=== PATIENT | female | born 1965 | race Caucasian/White ===

== ENCOUNTER → 2016-09-26 | Outpatient (CLI) | payer OTHER ==
--- NOTE | 2016-09-26 16:10 | EKG ---
[address] [address] Measurements Intervals [place] Rate: 98 P: 85 NM: 123 QRS: 81 QRSD: 94 T: 85 QT: 334 QTc: 390 Interpretive Statements SINUS RHYTHM POSSIBLE RIGHT ATRIAL ENLARGEMENT RIGHT VENTRICULAR CONDUCTION DELAY BORDER LINE VOLTAGE FOR LVH Compared to ECG 01/13/2016 16:02:34 No significant changes Electronically Signed On 09-26-16 17:31:21 MST by Kasi Juan [email or web address]
[2016-09-26 16:59] LABS: BASOPHILS # (AUTO) 0.04 10*3/UL; BASOPHILS % (AUTO) 0.7 % (0-1); EOSINOPHILS % (AUTO) 0.7 % (0-8); HEMATOCRIT 41.9 % (37.0-47.0); HEMOGLOBIN 14.7 g/dL (12.0-16.0); IMM GRAN % (AUTO) 0 % (0-5); IMM GRAN# (AUTO) 0 10*3/UL; LYMPHOCYTES # (AUTO) 1.87 10*3/uL; LYMPHOCYTES % (AUTO) 31.8 % (10-50); MEAN CORPUSCULAR HEMOGLOBIN 34.1 PG (27-31); MEAN CORPUSCULAR HGB CONC 35.1 g/dL (33-37); MEAN PLATELET VOLUME 9.1 FL (7.4-12.2); MONOCYTES # (AUTO) 0.84 10*3/UL (0.3-0.8); MONOCYTES % (AUTO) 14.3 % (5-15); NEUTROPHILS # (AUTO) 3.09 10*3/UL; NEUTROPHILS % (AUTO) 52.5 % (50-80); RED BLOOD COUNT 4.31 10^6/uL (4.20-5.40); WHITE BLOOD COUNT 5.88 10^3/uL (4.8-10.8)
[2016-09-26 17:02] LABS: BILIRUBIN,URINE NEGATIVE (NEG); CLARITY,URINE CLEAR (CLEAR); GLUCOSE, URINE (UA) NEGATIVE (NEG); LEUKOCYTE ESTERASE ,URINE NEGATIVE (NEG); NITRATE,URINE NEGATIVE (NEG); OCCULT BLOOD,URINE NEGATIVE (NEG); PROTEIN,URINE NEGATIVE (NEG); UROBILINOGEN,URINE 0.2 mg/dL (0.2)
[2016-09-26 17:05] LABS: PLATELET MORPHOLOGY COMMENT NORMAL MORPHOLOGY (NORM)
[2016-09-26 17:06] LABS: URINE SAMPLE TYPE CLEAN CATCH URINE
[2016-09-26 17:10] LABS: RBC,URINE 0 /hpf; WBC,URINE 0
[2016-09-26 17:35] LABS: ASPARTATE AMINO TRANSFERASE 26 IU/L (8-39); BILIRUBIN,TOTAL 0.6 mg/dL (0.3-1.2); BLOOD UREA NITROGEN 9 mg/dL (7-22); CALCIUM 9.5 mg/dL (8.7-10.7); CHLORIDE 94 meq/L (98-112); CREATININE 0.5 mg/dL (0.50-1.20); EST GLOMERULAR FILTRATION > 60 (>60 ml/min/1.73m(2)); GLUCOSE 66 mg/dL (78-110); POTASSIUM 4.1 meq/L (3.8-5.2); SODIUM 132 meq/L (135-145); TOTAL PROTEIN 7.1 g/dL (6.1-8.0)
[2016-09-26 20:37] LABS: PROTHROMBIN TIME 12.3 secs (9.7-11.4)
--- NOTE | 2016-09-26 21:34 | DI ---
XR CXR 2VW PA/LAT,09/26/2016 3:53 PM: Clinical History: Lumbar disc disorder. Previous Exam: Plain film performed April 05, [address] chest performed April 15, 2014 and June 26, 2014 Findings: PA and lateral views of the chest are obtained, and demonstrate enlarging masses within the right [place] g when compared with the prior PA and lateral view of the chest. There are now 2 spiculated masses id entified and there is some retraction of the lung. Impression: Enlarging right lung nodules most consistent with malignancy. Consider tissue sampling for further ev aluation.
== END ==
LOC: RAD 16:16
PROVIDERS: ATTEND Internal Medicine
DX: Z01.812 Encounter for preprocedural laboratory examination (principal); Z01.810 Encounter for preprocedural cardiovascular examination; Z01.818 Encounter for other preprocedural examination; M51.86 Other intervertebral disc disorders, lumbar region; R91.1 Solitary pulmonary nodule; I45.89 Other specified conduction disorders
CPT/HCPCS: 36415; 71020; 80053; 81001; 85025; 85610; 85730; 93005; 93010

== ENCOUNTER 2016-10-19 20:42 | Emergency (ER) | payer OTHER ==
[2016-10-19] MEDS ORDERED: Sodium Chloride 0.9% 1,000 ML PRIMARY IV ONE ×2 (21:05→22:30)
[2016-10-19] MEDS ORDERED: NORMAL SALINE 10 ML SYRINGE FLUSH IVP PRN (21:05)
[2016-10-19 21:14] LABS: BASOPHILS # (AUTO) 0.04 10*3/UL; BASOPHILS % (AUTO) 0.5 % (0-1); EOSINOPHILS % (AUTO) 1.1 % (0-8); HEMATOCRIT 40.8 % (37.0-47.0); HEMOGLOBIN 14.7 g/dL (12.0-16.0); IMM GRAN % (AUTO) 0.1 % (0-5); IMM GRAN# (AUTO) 0.01 10*3/UL; LYMPHOCYTES # (AUTO) 1.87 10*3/uL; LYMPHOCYTES % (AUTO) 25.5 % (10-50); MEAN CORPUSCULAR HEMOGLOBIN 34.7 PG (27-31); MEAN PLATELET VOLUME 8.6 FL (7.4-12.2); MONOCYTES # (AUTO) 0.92 10*3/UL (0.3-0.8); MONOCYTES % (AUTO) 12.5 % (5-15); NEUTROPHILS # (AUTO) 4.42 10*3/UL; NEUTROPHILS % (AUTO) 60.3 % (50-80); RDW COEFFICIENT OF VARIATION 12.6 % (11.5-14.5); RED BLOOD COUNT 4.24 10^6/uL (4.20-5.40); WHITE BLOOD COUNT 7.34 10^3/uL (4.8-10.8)
[2016-10-19 21:17] LABS: PLATELET MORPHOLOGY COMMENT NORMAL MORPHOLOGY (NORM)
[2016-10-19 21:22] VITALS: RESP 16; TEMP 98.9
[2016-10-19 21:24] LABS: AMYLASE 49 U/L (30-110); ASPARTATE AMINO TRANSFERASE 27 IU/L (8-39); BILIRUBIN,TOTAL 0.4 mg/dL (0.3-1.2); BLOOD UREA NITROGEN 12 mg/dL (7-22); CALCIUM 9.5 mg/dL (8.7-10.7); CHLORIDE 98 meq/L (98-112); CREATININE 0.6 mg/dL (0.50-1.20); EST GLOMERULAR FILTRATION > 60 (>60 ml/min/1.73m(2)); GLUCOSE 91 mg/dL (78-110); POTASSIUM 3.9 meq/L (3.8-5.2); SODIUM 135 meq/L (135-145); TOTAL PROTEIN 7.3 g/dL (6.1-8.0)
--- NOTE | 2016-10-19 22:22 | DI ---
HISTORY: Abdominal pain. COMPARISON: None available. TECHNIQUE: Multiple helically acquired CT images were obtained through the abdomen and pelvis follow ing administration of intravenous contrast. FINDINGS: Examination demonstrates clear lungs. The liver, gallbladder, pancreas, spleen, adrenals and kidneys are unremarkable. There is prominence of the right proximal ureter with a very small 3 mm right mid ureteral stone at the level of the rig ht common iliac artery. There is no free air nor free fluid. Urinary bladder is unremarkable. The left kidney is normal. A few peripheral vascular calcifications are seen. Skeletal structures are unremarkable. IMPRESSION: 1. Possible 2.5 mm stone within the right mid ureter at the level of the right common iliac artery.
[2016-10-19] MEDS ORDERED: TAMSULOSIN 0.4 MG CAPSULE PO ONE (22:30)
[2016-10-19] MEDS ORDERED: KETOROLAC 30 MG/1 ML VIAL IM ONE (22:30)
[2016-10-19 22:40] LABS: BILIRUBIN,URINE NEGATIVE (NEG); CLARITY,URINE CLEAR (CLEAR); GLUCOSE, URINE (UA) NEGATIVE (NEG); LEUKOCYTE ESTERASE ,URINE NEGATIVE (NEG); NITRATE,URINE NEGATIVE (NEG); OCCULT BLOOD,URINE NEGATIVE (NEG); PROTEIN,URINE NEGATIVE (NEG); UROBILINOGEN,URINE 0.2 mg/dL (0.2)
[2016-10-19 22:45] LABS: URINE SAMPLE TYPE CLEAN CATCH URINE
[2016-10-19 22:46] LABS: RBC,URINE 0-1 /hpf; WBC,URINE 0
--- NOTE | 2016-10-20 03:26 | PDOC ---
Abdomen/Flank HPI - General Chief Complaint: Abdomen Pain Stated Complaint: Abdominal bloating/distention Date Seen by Provider: 10/19/16 Time Seen by Provider: 20:50 Source: POSITIVE: Patient Exam Limitations: POSITIVE: No limitations Nurse's Notes Reviewed & Considered: Yes - History of Present Illness Initial Comments: Patient is a 51-year-old female. She presents to the emergency room complaining of some "abdominal distention" today. She also complains of some pain in the right flank radiating into the right lower part of her abdomen. She states she had back surgery 9 days ago. She's never had any abdominal surgery. No fevers or chills. No nausea, vomiting, dysuria or hematuria. She states she's had a couple of loose bowel movements today; she states that prior to today she's not had any bowel movements for several days. No known fevers. She smokes a pack of cigarettes per day. She has been taking half a Percocet tablet every 8 hours as necessary for her postoperative back discomfort. Body Location Affected: REPORTS: Abdomen Timing: REPORTS: Gradual, Intermittent Duration: <24 hours Severity: Moderate Quality: REPORTS: "Pain" Abdominal Pain Onset Location: REPORTS: RLQ, Periumbilical Abdominal Pain Radiation: REPORTS: No radiation Context: REPORTS: None Modifying Factors: improves with: Other (Loose bowel movements today) Associated Symptoms: REPORTS: Denies symptoms Similar Symptoms Previously: No Recent Care Received: REPORTS: Denies Any Prior Injuries Related to Current Complaint?: No - Patient Home Medications Home Medications: Home Medications Ibuprofen 1 cap PO Q6H #180 cap 07/06/15 Tamsulosin HCl 0.4 mg PO DAILY #12 cap 10/19/16 - Patient Allergies Allergies/Adverse Reactions: Allergies Allergy/AdvReac Type Severity Reaction Status Date / Time adhesive Allergy Severe RASH Verified 10/19/16 20:53 Past Medical History - heen HEENT History: Denies History Cardiovascular History: Denies History Respiratory History: Denies History Gastrointestinal History: Denies History Genitourinary History: Denies History Endocrine History: Denies History Musculoskeletal History: Osteoporosis, Back Pain, Other (please comment) Prosthesis or Implant: No Additional Musculoskeletal History: Hx of MLD and Laminectomy (on 10/10/2016). Neurological History: Denies History Blood Disorders: Denies History Psychiatric History: Denies History Additional Psychiatric History: ANXIETY SINCE LOSS OF SISTER TO [place] History of Sexually Transmitted Diseases: No Cancer History: Lung Cancer Treatment / Date(s) of Treatment: RADIATION OCT 2015/ NEXT PET JANUARY 09 In Past Year Been Physically Harmed or Verbally Threatened: No History of MDRO: Unknown History of Other Communicable Diseases: No Tobacco Use: Current Every Day Smoker Alcohol Use: Occasionally Substance Use Type: None Previous Surgical History: Yes Type / Date of Surgery: EXPLORATORY LAP. LEFT THUMB SURGERY Anesthesia Reactions: No Malignant Hyperthermia: No Significant Family History: No pertinent family hx Past Medical History Reviewed: Reviewed - No Changes ROS - Limitations ROS Limitations: No Limitations Constitution: REPORTS: Denies Symptoms Cardiovascular: REPORTS: Denies Cardiac Symptoms Respiratory: REPORTS: Denies Resp Symptoms Neurological: REPORTS: Denies Neuro Symptoms Gastrointestinal: REPORTS: Abdominal Pain, Diarrhea Endocrine: REPORTS: Denies Symptoms Musculoskeletal: REPORTS: Denies MS Symptoms Genitourinary: REPORTS: Denies Symptoms Eyes: REPORTS: Denies Symptoms ENT: REPORTS: Denies Symptoms Skin: REPORTS: Denies Skin Symptoms Lympathic: REPORTS: Denies Lympathic Symptoms Immunologic: POSITIVE: Denies Symptoms Psychiatric: POSITIVE: Denies Psych Symptoms Abdominal/Flank Pain PE - General Appearance General Appearance: POSITIVE: Alert, Cooperative, No Acute Distress, No Evidence of Trauma - HEENT HEENT: POSITIVE: Head Inspection Nml, Eyes Inspection Nml, Ears Inspection Nml, Nose Inspection Nml, Oral/Dental Inspect. Nml, Pharynx Inspect. Nml, PERRL, EOMI - Neck Neck: POSITIVE: Normal Inspection, No Apparent Injury - Respiratory Respiratory: POSITIVE: No Respiratory Distress, Breath Sounds Normal, Chest Non- Tender - Cardiovascular Cardiovascular: POSITIVE: Regular Rate and Rhythm, Heart Sounds Normal, Equal Pulses, Strong Pulses Peripheral Pulses: Radial (R): 2+, Radial (L): 2+ - Abdomen Abdomen: Soft: (All Quadrants), Normal Bowel Sounds: (All Quadrants), Denies Tenderness: (RUQ), No Splenomegaly: (All Quadrants), No Hepatomegaly: (All Quadrants), No Guarding: (All Quadrants), No Rebound: (All Quadrants), No Palpable Pulse: (All Quadrants), No Palpabale Mass: (All Quadrants), No Distention: (RUQ), (LUQ), No Rigidity: (All Quadrants), Tenderness Noted: (RLQ) , (LLQ) Additional Abdominal Details: Abdominal examination shows bowel sounds to be active. There is some mild poorly localized discomfort and distention left and right lower abdomen; patient is quite thin. - Genital / Rectal Rectal: POSITIVE: Non Tender, Normal Rectal Tone, Heme Negative Stool, Other ( Considerable air in the vault. Minimal stool. Liquid stool in the vault which is Hemoccult negative) - Back Back: POSITIVE: Normal Inspection - Skin Skin: POSITIVE: Intact, Normal For Race, Warm, Dry, No Rash - Extremities Extremity: Non-Tender: (All Extremities), Normal ROM: (All Extremities), Normal Inspection: (All Extremities) - Neurological Neurological: POSITIVE: Oriented X3, food preparer Normal As Tested, Motor Normal, Sensation Normal, 5, 6 - Psychological Psychiatric: POSITIVE: Affect Appropriate, Mood Appropriate Images - Complete Complete: 1 - Mild abdominal distention Abdomen Progress - Results Reviewed by me Xrays/CTs/US Reviewed by me: Yes Discussed with Radiologist: Yes Radiology Findings: Probable small ureterolith, 3 mm, right ureter at about the level of the iliac artery with some hydroureter proximal to this Lab Results Reviewed: Yes Lab Results:: Laboratory Results 10/19/16 10/19/16 Range/Units 21:10 22:35 WBC 7.34 (4.8-10.8) 10^3/uL RBC 4.24 (4.20-5.40) 10^6/uL Hgb 14.7 (12.0-16.0) g/dL Hct 40.8 (37.0-47.0) % MCV 96.2 (81-99) FL MCH 34.7 H (27-31) PG MCHC 36.0 (33-37) g/dL RDW Std Deviation 43.0 (39-50) fL RDW Coeff of Delilah 12.6 (11.5-14.5) % Plt Count 273 (140-350) 10*3/uL MPV 8.6 (7.4-12.2) FL Immature Gran % (Auto) 0.1 (0-5) % Neut % (Auto) 60.3 (50-80) % Lymph % (Auto) 25.5 (10-50) % [place] % (Auto) 12.5 (5-15) % Eos % (Auto) 1.1 (0-8) % Baso % (Auto) 0.5 (0-1) % Immature Gran # (Auto) 0.01 10*3/UL Neut # (Auto) 4.42 10*3/UL Lymph # (Auto) 1.87 10*3/uL [place] # (Auto) 0.92 H (0.3-0.8) 10*3/UL Eos # (Auto) 0.08 10*3/UL Baso # (Auto) 0.04 10*3/UL WBC Morphology Comment Normal morphology (NORM) Plt Morphology Comment Normal morphology (NORM) RBC Morph Comment Normal morphology (NORM) Sodium 135 (135-145) meq/L Potassium 3.9 (3.8-5.2) meq/L Chloride 98 (98-112) meq/L Carbon Dioxide 26 (23-33) meq/L Anion Gap 11 (5-20) BUN 12 (7-22) mg/dL Creatinine 0.6 (0.50-1.20) mg/dL Estimated GFR > 60 (>60 ml/min/1.73m(2)) BUN/Creatinine Ratio 20.00 (6-20) Glucose 91 (78-110) mg/dL Calculated Osmolality 279.0 (267-292) mOsm/kg Calcium 9.5 (8.7-10.7) mg/dL Total Bilirubin 0.4 (0.3-1.2) mg/dL AST 27 (8-39) IU/L ALT 33 (9-52) IU/L Alkaline Phosphatase 68 (38-126) IU/L Total Protein 7.3 (6.1-8.0) g/dL Albumin 4.6 (3.5-4.8) g/dL Globulin 2.6 (2.50-4.10) g/dL Albumin/Globulin Ratio 1.70 (1.3-2.0) mg/g Amylase 49 (30-110) U/L Lipase 152 (23-300) IU/L Ur Collection Type Clean catch urine Urine Color Yellow Urine Clarity Clear (CLEAR) Urine pH 7.0 (5.0-8.5) Ur Specific [place] 1.010 (1.005-1.030) Urine Protein Negative (NEG) mg/dl Urine Glucose (UA) Negative (NEG) mg/dL Urine Ketones Negative (NEG) Urine Occult Blood Negative (NEG) Urine Nitrate Negative (NEG) Urine Bilirubin Negative (NEG) Urine Urobilinogen 0.2 (0.2) mg/dL Ur Leukocyte Esterase Negative (NEG) Urine RBC 0-1 (NONE) /hpf Urine WBC 0 (NONE) Ur Squamous Epith Cells None (NONE) Ur Renal Epithelial Cell None (NONE) Urine Crystals None Urine Bacteria None (NONE) Urine Casts None Urine Mucus None (NONE) Urine Trichomonas None (NONE) Urine Yeast None (NONE) - Patient's Progress Pain Medication Addressed: POSITIVE: Yes (Ketorolac, 30 mg IV; patient also given Flomax 0.4 mg orally) School/Work Release Addressed: POSITIVE: Not Applicable Re-examine Time: 23:00 Re-Examine Comment: CT scan also shows considerable liquid stool in the lower large bowel. Diagnoses and instructions given to patient. Patient feels somewhat improved after IV fluids and ketorolac IV. Status: POSITIVE: Improved, Re-Examined - Consult Counseled: POSITIVE: Patient, RE: Lab Results, RE: Radiology Results, RE: DX, RE : Need for F/U Patient Care Time - Estimated PCT Patient Care Time (In Minutes): 45 Vital Signs - Recent Vital Signs Vital Signs: Vital Signs (Last 8 hours) Temp Pulse Resp BP Pulse Ox 10/19/16 20:42 98.9 F 108 H 16 141/91 93 - VS Reviewed Vital Signs Reviewed: Yes Discharge Clinical Impression: Diarrhea, Ureterolithiasis Discharge Disposition: Discharged to Home Condition: Stable Prescriptions / Orders: Tamsulosin HCl 0.4 mg PO DAILY #12 cap Patient Instructions Given at Discharge: Acute Diarrhea (ED), Ureteral Stones ( ED) Additional Instructions: Your CT scan shows that you probably have a small ureterolith (kidney stone) on the right. This stone is small and it will probably pass. Increase fluids. Strain your urine and check for passage of a stone. Tamsulosin, one daily. Percocet every 4-6 hours as necessary for pain. You also have considerable fluid in your bowel and your beginning to have diarrhea; this is probably the source of your abdominal distention. Clear liquid diet for 12 hours. Return anytime if condition worsens. If you have not passed her stone in 7-10 days, please follow-up with urology in [place], because occasionally the stones need to be removed; however, as indicated above, your stone is very small and I believe you will probably pass this stone, although you might have some pain and discomfort while you are doing so. Return any time if you develop fevers or chills, persistent vomiting, or if condition worsens in any way whatsoever. Follow Up With: JOELLE JOAQUIN [Primary Care Provider] - (Instructions and medications as above. Follow-up with your primary care provider, and if necessary, urology. Return here anytime if condition worsens.)
== END 2016-10-19 23:30 | disposition home or self-care (01) ==
LOC: ER 20:42
DX: N20.1 Calculus of ureter (principal); R19.7 Diarrhea, unspecified; R10.31 Right lower quadrant pain; Z72.0 Tobacco use
CPT/HCPCS: 74177; 80053; 81001; 82150; 83690; 85025; 96361; 96374; 99283 ×2; J1885; J7030

== ENCOUNTER 2016-10-22 06:10 | Emergency (ER) | payer OTHER ==
[2016-10-22 06:23] VITALS: RESP 16; TEMP 97.4
[2016-10-22] MEDS ORDERED: Prochlorperazine Edisylate Inj 10mg/2ml vial IVP ONE (06:26)
[2016-10-22] MEDS ORDERED: DEXAMETHASONE PF 10 MG/1 ML VIAL IM ONE (06:26)
[2016-10-22] MEDS ORDERED: diphenhydrAMINE 50 MG/1 ML VIAL IVP ONE (06:26)
[2016-10-22] MEDS ORDERED: NORMAL SALINE 10 ML SYRINGE FLUSH IVP PRN (06:26)
[2016-10-22] MEDS ORDERED: Sodium Chloride 0.9% 1,000 ML PRIMARY IV ONE (06:26)
[2016-10-22 06:37] LABS: BASOPHILS # (AUTO) 0.02 10*3/UL; BASOPHILS % (AUTO) 0.2 % (0-1); EOSINOPHILS % (AUTO) 1.1 % (0-8); HEMATOCRIT 39.6 % (37.0-47.0); HEMOGLOBIN 14.2 g/dL (12.0-16.0); IMM GRAN % (AUTO) 0.2 % (0-5); IMM GRAN# (AUTO) 0.02 10*3/UL; MEAN CORPUSCULAR HEMOGLOBIN 34.4 PG (27-31); MEAN CORPUSCULAR HGB CONC 35.9 g/dL (33-37); MEAN PLATELET VOLUME 8.6 FL (7.4-12.2); MONOCYTES % (AUTO) 7.4 % (5-15); NEUTROPHILS # (AUTO) 5.66 10*3/UL; NEUTROPHILS % (AUTO) 70.1 % (50-80); RDW COEFFICIENT OF VARIATION 12.6 % (11.5-14.5); RED BLOOD COUNT 4.13 10^6/uL (4.20-5.40); WHITE BLOOD COUNT 8.09 10^3/uL (4.8-10.8)
[2016-10-22 06:40] LABS: PLATELET MORPHOLOGY COMMENT NORMAL MORPHOLOGY (NORM)
[2016-10-22 06:51] LABS: ASPARTATE AMINO TRANSFERASE 19 IU/L (8-39); BILIRUBIN,TOTAL 0.5 mg/dL (0.3-1.2); BLOOD UREA NITROGEN 4 mg/dL (7-22); CALCIUM 9.2 mg/dL (8.7-10.7); CHLORIDE 98 meq/L (98-112); CREATININE 0.5 mg/dL (0.50-1.20); EST GLOMERULAR FILTRATION > 60 (>60 ml/min/1.73m(2)); GLUCOSE 97 mg/dL (78-110); POTASSIUM 4.1 meq/L (3.8-5.2); SODIUM 133 meq/L (135-145); TOTAL PROTEIN 7.1 g/dL (6.1-8.0)
[2016-10-22 06:52] LABS: C-REACTIVE PROTEIN < 0.5 mg/dL (0.0-0.9)
--- NOTE | 2016-10-22 07:27 | PDOC ---
Headache HPI - General Chief Complaint: Headache Stated Complaint: headache, abd pain Date Seen by Provider: 10/22/16 Time Seen by Provider: 06:20 Source: POSITIVE: Patient Exam Limitations: POSITIVE: No limitations Nurse's Notes Reviewed & Considered: Yes - History of Present Illness Initial Comments: The patient is a 51-year-old female who presents to the emergency department with complaints of left sided frontal headache. She states that she had onset of headache yesterday. She describes the pain as a sharp occasionally throbbing pain to the left frontal area. She did have one episode of nausea and vomiting yesterday. She does not have prior history of similar headaches in the past. She currently reports her pain is a 9 out of 10 and she did not sleep at all last night secondary to the pain. She did recently undergo a lumbar laminectomy surgery. She also has a history of lung cancer and is status post radiation treatments for this. She is scheduled to undergo PET scanning sometime in the next week or 2 with her oncologist in [place]. She denies any recent trauma or illness otherwise. She was evaluated here in the emergency room several days ago with complaints of abdominal bloating and pain. She was noted to have a kidney stone on her CAT scan and had been started on Flomax. She states that her headache started shortly after taking the Flomax. She denies significant light sensitivity or change in vision. She reports that her vision is blurry chronically and she needs new glasses. She denies numbness or weakness in her arms or legs. - Patient Home Medications Home Medications: Home Medications Ibuprofen 1 cap PO Q6H #180 cap 07/06/15 Tamsulosin HCl 0.4 mg PO DAILY #12 cap 10/19/16 Promethazine HCl [Phenergan] 25 mg PO Q6H PRN #10 tab 10/22/16 oxyCODONE/APAP 5/325 Tab [Percocet 5/325 Tab] 2.5 mg PO PRN 10/22/16 - Patient Allergies Allergies/Adverse Reactions: Allergies Allergy/AdvReac Type Severity Reaction Status Date / Time adhesive Allergy Severe RASH Verified 10/22/16 06:13 Past Medical History - li SCHAFERENT History: Denies History Cardiovascular History: Denies History Respiratory History: Denies History Gastrointestinal History: Denies History Genitourinary History: Denies History Endocrine History: Denies History Musculoskeletal History: Osteoporosis, Back Pain, Other (please comment) Prosthesis or Implant: No Additional Musculoskeletal History: Hx of MLD and Laminectomy (on 10/10/2016). Neurological History: Denies History Blood Disorders: Denies History Psychiatric History: Denies History Additional Psychiatric History: ANXIETY SINCE LOSS OF SISTER TO [place] History of Sexually Transmitted Diseases: No LMP: 1996 Cancer History: Lung Cancer Treatment / Date(s) of Treatment: RADIATION OCT 2015/ NEXT PET JANUARY 09 In Past Year Been Physically Harmed or Verbally Threatened: No History of MDRO: Unknown History of Other Communicable Diseases: No Tobacco Use: Current Every Day Smoker Alcohol Use: Occasionally Substance Use Type: None Previous Surgical History: Yes Type / Date of Surgery: EXPLORATORY LAP. LEFT THUMB SURGERY. Back Anesthesia Reactions: No Malignant Hyperthermia: No Significant Family History: No pertinent family hx Past Medical History Reviewed: Reviewed - No Changes ROS - Limitations ROS Limitations: No Limitations Constitution: REPORTS: Chills. DENIES: Fever Cardiovascular: REPORTS: Denies Cardiac Symptoms Respiratory: REPORTS: Denies Resp Symptoms Neurological: REPORTS: Headache. DENIES: Confusion, Numbness, Fainting, Difficulty Walking, Seizure Activity, Weakness Gastrointestinal: REPORTS: Nausea, Vomitting (1 yesterday), Diarrhea (She has had some loose stools since being seen in the ER 2 days ago). DENIES: Abdominal Pain (No current abdominal pain, she was evaluated in the ER several days ago with abdominal pain and bloating and diagnosed with a kidney stone) Musculoskeletal: REPORTS: Denies MS Symptoms Genitourinary: REPORTS: Denies Symptoms Eyes: REPORTS: Denies Symptoms ENT: REPORTS: Denies Symptoms. DENIES: Congestion, Sore Throat Skin: DENIES: Rash Headache Exam - General Appearance General Appearance: POSITIVE: Alert, Cooperative, No Acute Distress - HEENT Head / Face: POSITIVE: Atraumatic, Normal Inspection, No Facial Swelling Eyes: POSITIVE: Inspection Normal, PERRL, EOM's Intact Ears: POSITIVE: Ears Normal Inspection, TM Normal Inspection Nose: POSITIVE: Inspection Normal Oropharynx: POSITIVE: External Inspection Nml, Pharynx Inspect. Nml, Airway Intact, Voice Normal, Moist Mucous Membranes - Neck Neck: POSITIVE: Normal Inspection, Supple. NEGATIVE: Lymphadenopathy, Stiff Neck - Respiratory / CVS Respiratory / CVS: POSITIVE: No Respiratory Distress, Heart Sounds Normal, Regular Rate/Rhythm, Breath Sounds Normal Peripheral Pulses: Dorsalis-pedis (R): 2+, Dorsalis-pedis (L): 2+ - Abdomen Abdomen: Soft: (All Quadrants), Denies Tenderness: (All Quadrants), No Distention: (All Quadrants) - Extremities Extremity: Normal ROM: (All Extremities), Normal Inspection: (All Extremities) - Neuro / Psych Higher Functions: POSITIVE: Alert, Oriented x3, Normal Speech Cranial Nerves: POSITIVE: Normal As Tested Sensorimotor: POSITIVE: No Motor Deficits, No Sensory Deficits Headache Progress - Results Reviewed by me Xrays/CTs/US Reviewed by me: Yes Discussed with Radiologist: Yes Radiology Findings: CT scan of her head reveals no acute intracranial abnormality per radiologist. Lab Results Reviewed: Yes Lab Results:: Laboratory Results 10/22/16 Range/Units 06:30 WBC 8.09 (4.8-10.8) 10^3/uL RBC 4.13 L (4.20-5.40) 10^6/uL Hgb 14.2 (12.0-16.0) g/dL Hct 39.6 (37.0-47.0) % MCV 95.9 (81-99) FL MCH 34.4 H (27-31) PG MCHC 35.9 (33-37) g/dL RDW Std Deviation 43.2 (39-50) fL RDW Coeff of Delilah 12.6 (11.5-14.5) % Plt Count 268 (140-350) 10*3/uL MPV 8.6 (7.4-12.2) FL Immature Gran % (Auto) 0.2 (0-5) % Neut % (Auto) 70.1 (50-80) % Lymph % (Auto) 21.0 (10-50) % [place] % (Auto) 7.4 (5-15) % Eos % (Auto) 1.1 (0-8) % Baso % (Auto) 0.2 (0-1) % Immature Gran # (Auto) 0.02 10*3/UL Neut # (Auto) 5.66 10*3/UL Lymph # (Auto) 1.70 10*3/uL [place] # (Auto) 0.60 (0.3-0.8) 10*3/UL Eos # (Auto) 0.09 10*3/UL Baso # (Auto) 0.02 10*3/UL WBC Morphology Comment Normal morphology (NORM) Plt Morphology Comment Normal morphology (NORM) RBC Morph Comment Normal morphology (NORM) Sodium 133 L (135-145) meq/L Potassium 4.1 (3.8-5.2) meq/L Chloride 98 (98-112) meq/L Carbon Dioxide 23 (23-33) meq/L Anion Gap 12 (5-20) BUN 4 L (7-22) mg/dL Creatinine 0.5 (0.50-1.20) mg/dL Estimated GFR > 60 (>60 ml/min/1.73m(2)) BUN/Creatinine Ratio 8.00 (6-20) Glucose 97 (78-110) mg/dL Calculated Osmolality 272.0 (267-292) mOsm/kg Calcium 9.2 (8.7-10.7) mg/dL Total Bilirubin 0.5 (0.3-1.2) mg/dL AST 19 (8-39) IU/L ALT 30 (9-52) IU/L Alkaline Phosphatase 55 (38-126) IU/L C-Reactive Protein < 0.5 (0.0-0.9) mg/dL Total Protein 7.1 (6.1-8.0) g/dL Albumin 4.3 (3.5-4.8) g/dL Globulin 2.8 (2.50-4.10) g/dL Albumin/Globulin Ratio 1.50 (1.3-2.0) mg/g - Patient's Progress MDM / ED Course: On arrival the patient reported that her pain level was 9 out of 10. An IV was established and she did receive 1 L bolus of normal saline as well as Compazine 5 mg IV, Benadryl 25 mg IV and Decadron 10 mg IV. Shortly after receiving the Compazine she had onset of itching that started in the area of her buttocks and then extended systemically. She did not exhibit any rash or swelling. It was thought that this might of been some type of mild dystonic reaction that resolved very quickly. Her headache improved from a 9 to a 45 out of 10. Lab work is all essentially unremarkable. CT scan of her head was obtained. This was read as normal per radiologist. By the time CT scan results were available the patient was resting comfortably and stated that her pain was down to about a 3 out of 10. Results of lab work and CT scan were discussed. The exact etiology of her headache is unclear. This could represent a migraine or tension headache. Her pain has responded well to current therapy. She was given Toradol 30 mg IV prior to discharge. She is advised to rest and push fluids. She will continue ibuprofen or oxycodone as needed for pain. In addition she was prescribed Phenergan which can be used in combination with Benadryl if she has recurrent headache. Her headaches did start after initiation of treatment with Flomax. This may be unrelated however she does not appear to need this medication currently and will be discontinued. She is advised to return to the emergency room if she develops worsening headache, vomiting or dehydration, fever, any worsening or change in symptoms. She has a scheduled follow-up with her oncologist later this week for PET scanning. She is also advised follow-up with Dr. Joaquin. - Consult Counseled: POSITIVE: Patient, Family, RE: Lab Results, RE: Radiology Results, RE : DX, RE: Need for F/U Patient Care Time - Estimated PCT Patient Care Time (In Minutes): 35 Vital Signs - Recent Vital Signs Vital Signs: Vital Signs (Last 8 hours) Temp Pulse Resp BP Pulse Ox 10/22/16 06:16 97.4 F 95 16 160/105 95 - VS Reviewed Vital Signs Reviewed: Yes Discharge Clinical Impression: Headache Condition: Stable Prescriptions / Orders: Promethazine HCl [Phenergan] 25 mg PO Q6H PRN #10 tab PRN Reason: Nausea / Vomiting Patient Instructions Given at Discharge: Acute Headache (ED) Additional Instructions: The CAT scan did not reveal any evidence of bleeding, tumor or any other abnormality. Her blood work is all essentially normal as well. The exact cause of the headache is unclear however could be a migraine or tension headache. Rest and push fluids. Continue ibuprofen as needed for pain. Continue oxycodone as needed for pain. You've also been prescribed Phenergan which can be taken in combination with Benadryl for headache as well. It is possible that the Flomax (kidney stone medication) is contributing to headaches and can be discontinued. Return to the emergency room if worsening headache, vomiting or dehydration, fever, any worsening or change in symptoms. Keep your appointment for the PET scanning later this week with subsequent follow-up. Follow-up with primary care in 5-7 days. Follow Up With: JOELLE JOAQUIN [Primary Care Provider] -
--- NOTE | 2016-10-22 07:35 | DI ---
HISTORY: Left frontal headache x2 days. Patient reports changes in vision and sensitivity to light. TECHNIQUE: Contiguous axial images of the brain were obtained and submitted for interpretation. FINDINGS: No acute intracranial hemorrhage. No mass effect or midline shift. The ventricles, sulci, and cisterns are within normal limits for age. The [place]-white matter differentiation is preserved w ith no evidence of acute infarct. No aggressive osseous lesion or depressed skull fracture. Paranasal sinuses and mastoid air cells ar e clear. Vascular structures are intact. Orbits and facial soft tissues are unremarkable. IMPRESSION: 1. No acute intracranial findings.
[2016-10-22] MEDS ORDERED: KETOROLAC 30 MG/1 ML VIAL IVP ONE (07:46)
== END 2016-10-22 08:13 | disposition home or self-care (01) ==
LOC: ER 06:10
DX: R51 Headache (principal); R11.2 Nausea with vomiting, unspecified
CPT/HCPCS: 70450; 80053; 85025; 86140; 96361; 96374; 96375; 99283 ×2; J1200; J1885; J0780; J1100; J7030

== ENCOUNTER → 2017-01-22 | Outpatient (CLI) | payer OTHER ==
--- NOTE | 2017-01-22 11:14 | DI ---
MRI LUMBAR SPINE W/O CN,01/22/2017 7:46 AM: Clinical History: Recurrent low back pain with radiculopathy. Previous Exam: May 19, 2016 Findings: Multiplanar MR images are obtained through the lumbar spine without contrast. Bony alignment is anato brennan. No fractures are seen. The conus is normal at the L1 level. Visualized intra-abdominal structures are unremarkable. There is some stable facet arthropathy which is worst at the L4/5 level, but is also present at L5/S1 . There is no evidence of spondylolysis. Individual intervertebral disc spaces: L1/2: No significant stenosis. L2/3: There is a small broad-based disc bulge and some mild facet and ligamentum flavum hypertrophy w ithout significant stenosis. L3/4: There is some mild disc desiccation and annular fissuring with some facet and ligamentum flavum hypertrophy contributing to mild bilateral neural foraminal narrowing. L4/5: Again noted is disc desiccation and annular fissuring however, there has been some new disc ext rusion involving the right lateral recess combining with facet and ligamentum flavum hypertrophy to c ause some focal narrowing of the exiting right L4 nerve root. There is also moderate left lateral rec ess stenosis. L5/S1: There is a very small annular fissure posteriorly and a small broad-based disc bulge with some facet and ligamentum flavum hypertrophy contributing to mild bilateral lateral recess stenosis. Impression: New right lateral recess disc extrusion causing impingement of the exiting L4 nerve root at the L4/5 level.
== END ==
LOC: MRI 07:41
PROVIDERS: ATTEND Urology
DX: M54.16 Radiculopathy, lumbar region (principal); M51.16 Intervertebral disc disorders with radiculopathy, lumbar region; M47.816 Spondylosis without myelopathy or radiculopathy, lumbar region
CPT/HCPCS: 72148

== ENCOUNTER → 2017-01-30 | Outpatient (CLI) | payer OTHER ==
--- NOTE | 2017-01-30 10:15 | DI ---
XR L-SPINE 2-3 VW,01/30/2017 7:48 AM: Clinical History: Low back pain Previous Exam: May 09, 2016 Findings: Lateral flexion and extension views of the lumbar spine are obtained, and demonstrate anatomic alignm ent without fractures. Vertebral body height is preserved. Intervertebral disc height is also preserv ed. There is no significant instability on flexion or extension. Facet hypertrophy is also noted. A few peripheral vascular calcifications are seen. Impression: No fractures.
== END ==
LOC: RAD 07:47
PROVIDERS: ATTEND Neurological Surgery
DX: M54.5 Low back pain (principal)
CPT/HCPCS: 72100

== ENCOUNTER → 2017-02-16 | Outpatient (CLI) | payer OTHER ==
--- NOTE | 2017-02-16 11:33 | EKG ---
[address] [address] Measurements Intervals [place] Rate: 72 P: 71 SD: 122 QRS: 78 QRSD: 102 T: 76 QT: 404 QTc: 428 Interpretive Statements SINUS RHYTHM POSSIBLE LEFT ATRIAL ENLARGEMENT RIGHT VENTRICULAR CONDUCTION DELAY Compared to ECG 09/26/2016 16:11:33 Right atrial hypertrophy no longer present Electronically Signed On 02-16-17 18:22:27 MDT by Kasi Juan [id number]
[2017-02-16 11:59] LABS: BASOPHILS # (AUTO) 0.13 10*3/UL; BASOPHILS % (AUTO) 1.7 % (0-1); EOSINOPHILS # (AUTO) 0.39 10*3/UL; EOSINOPHILS % (AUTO) 5.1 % (0-8); HEMATOCRIT 41.9 % (37.0-47.0); HEMOGLOBIN 14.5 g/dL (12.0-16.0); LYMPHOCYTES # (AUTO) 2.08 10*3/uL; MEAN CORPUSCULAR HEMOGLOBIN 33.1 PG (27-31); MEAN CORPUSCULAR HGB CONC 34.6 g/dL (33-37); MEAN CORPUSCULAR VOLUME 95.7 FL (81-99); MEAN PLATELET VOLUME 8.7 FL (7.4-12.2); MONOCYTES # (AUTO) 0.71 10*3/UL (0.3-0.8); MONOCYTES % (AUTO) 9.3 % (5-15); NEUTROPHILS # (AUTO) 4.29 10*3/UL; NEUTROPHILS % (AUTO) 56.5 % (50-80); RED BLOOD COUNT 4.38 10^6/uL (4.20-5.40)
--- NOTE | 2017-02-16 11:59 | PE ---
[facility] Interpretive Statements [id number]
[2017-02-16 12:00] LABS: PLATELET MORPHOLOGY COMMENT NORMAL MORPHOLOGY (NORM); RBC MORPHOLOGY COMMENT NORMAL MORPHOLOGY (NORM); WBC MORPHOLOGY COMMENT NORMAL MORPHOLOGY (NORM)
[2017-02-16 12:37] LABS: BLOOD UREA NITROGEN 8 mg/dL (7-22); CALCIUM 9.9 mg/dL (8.7-10.7); EST GLOMERULAR FILTRATION > 60 (>60 ml/min/1.73m(2))
[2017-02-16 12:47] LABS: BILIRUBIN,URINE NEGATIVE (NEG); CLARITY,URINE CLEAR (CLEAR); COLOR,URINE YELLOW; GLUCOSE, URINE (UA) NEGATIVE (NEG); NITRATE,URINE NEGATIVE (NEG); OCCULT BLOOD,URINE NEGATIVE (NEG); PH,URINE 6.5 (5.0-8.5); PROTEIN,URINE NEGATIVE (NEG); UROBILINOGEN,URINE 0.2 mg/dL (0.2)
[2017-02-16 12:59] LABS: RBC,URINE 0 /hpf; URINE SAMPLE TYPE CLEAN CATCH URINE; WBC,URINE 0-1
== END ==
LOC: EKG 11:22
PROVIDERS: ATTEND Nurse Practitioner
DX: Z01.812 Encounter for preprocedural laboratory examination (principal); Z01.810 Encounter for preprocedural cardiovascular examination; Z01.818 Encounter for other preprocedural examination; M54.5 Low back pain; I45.89 Other specified conduction disorders; J44.9 Chronic obstructive pulmonary disease, unspecified
CPT/HCPCS: 36415; 80048; 81001; 85025; 85610; 85730; 93005; 93010; 94060

== ENCOUNTER 2017-03-27 12:38 | Emergency (ER) | payer OTHER ==
[2017-03-27] MEDS ORDERED: Sodium Chloride 0.9% 1,000 ML PRIMARY IV ONE (12:56)
[2017-03-27] MEDS ORDERED: MAGNESIUM CITRATE 296 ML SOLUTION PO ONE (12:56)
[2017-03-27] MEDS ORDERED: NORMAL SALINE 10 ML SYRINGE FLUSH IVP PRN (12:56)
[2017-03-27 13:37] LABS: BLOOD UREA NITROGEN 6 mg/dL (7-22); CALCIUM 8.7 mg/dL (8.7-10.7); EST GLOMERULAR FILTRATION > 60 (>60 ml/min/1.73m(2))
[2017-03-27 14:06] VITALS: RESP 20; TEMP 98
[2017-03-27] MEDS ORDERED: oxyCODONE/APAP 7.5/325 Tab 1 TAB TAB PO ONE (14:38)
--- NOTE | 2017-03-27 15:10 | PDOC ---
Abdomen/Flank HPI - General Chief Complaint: Abdomen Pain Stated Complaint: ?CONSTIPATED? ABD DISCOMFORT Date Seen by Provider: 03/27/17 Time Seen by Provider: 12:45 Source: POSITIVE: Patient - History of Present Illness Initial Comments: Patient is a very nice 52-year-old woman who had a lumbar fusion procedure done about 6 days ago. She has had no locking having any stooling since that time. She has not had loss of bladder continence she has not had loss of bowel continence because she's been extremely constipated. She has had some abdominal bloating associated with this. She is eating and drinking she is not nauseated or vomiting. She hasn't had substantial typical abdominal pain just a a lot of bloating and vague discomfort from her constipation. She denies any fever or chills as well. She feels like her back is healing up pretty well. She was of a little bit of lower extremity edema bilaterally that she normally doesn't have otherwise no new or different complaints. - Patient Home Medications Home Medications: Home Medications Cyclobenzaprine HCl 1 tab PO QD tab 02/06/17 Fluticasone/Vilanterol [Breo Ellipta 200-25 Mcg Inh] 1 each INH PRN puff Albuterol Sulfate [Proair Hfa] 1 - 2 puff INH Q4-6H PRN #1 inhaler 02/16/17 Oxycodone HCl/Acetaminophen [Percocet 7.5-325 mg Tablet] 1 each PO Q8H PRN PRN 03/27/17 - Patient Allergies Allergies/Adverse Reactions: Allergies Allergy/AdvReac Type Severity Reaction Status Date / Time adhesive Allergy Severe RASH Verified 03/27/17 12:50 doxycycline AdvReac Intermediate nausea, Verified 03/27/17 12:50 vomiting, severe headache Past Medical History - heen HEENT History: Denies History Cardiovascular History: Denies History Respiratory History: Other (please comment) Additional Respiratory History: LUNG CANCER Gastrointestinal History: Denies History Genitourinary History: Denies History Endocrine History: Denies History Musculoskeletal History: Osteoporosis, Back Pain, Other (please comment) Prosthesis or Implant: No Additional Musculoskeletal History: Hx of MLD and Laminectomy (on 10/10/2016). BACK SURGERY 03/23/17 Neurological History: Denies History Blood Disorders: Denies History Psychiatric History: Denies History Additional Psychiatric History: ANXIETY SINCE LOSS OF SISTER TO [place] History of Sexually Transmitted Diseases: No Female Reproductive History: Denies History Obstetrical History: Denies History Cancer History: Lung Cancer Treatment / Date(s) of Treatment: RADIATION OCT 2015/ NEXT PET JANUARY 09 In Past Year Been Physically Harmed or Verbally Threatened: No History of MDRO: Unknown History of Other Communicable Diseases: No Tobacco Use: Current Every Day Smoker Alcohol Use: Rarely Substance Use Type: None Previous Surgical History: Yes Type / Date of Surgery: EXPLORATORY LAP. LEFT THUMB SURGERY. Back Anesthesia Reactions: No Malignant Hyperthermia: No Significant Family History: No pertinent family hx Past Medical History Reviewed: Reviewed - No Changes ROS - Limitations ROS Limitations: No Limitations Constitution: REPORTS: Denies Symptoms Cardiovascular: REPORTS: Denies Cardiac Symptoms Respiratory: REPORTS: Denies Resp Symptoms Abdominal/Flank Pain PE - General Appearance General Appearance: POSITIVE: Alert, Cooperative, No Acute Distress - HEENT HEENT: POSITIVE: Head Inspection Nml, Eyes Inspection Nml - Respiratory Respiratory: POSITIVE: No Respiratory Distress - Abdomen Abdomen: Soft: (All Quadrants), Normal Bowel Sounds: (All Quadrants) Additional Abdominal Details: She has some vague diffuse tenderness and she does feel mildly bloated - Back Back: POSITIVE: Normal Inspection. NEGATIVE: CVA Tenderness (R) - Extremities Additional Extremities Details: She has some mild 1+ edema in her feet nothing really up into the calves negative Homans signs bilaterally no discoloration - Neurological Neurological: POSITIVE: Affect Apporpriate, Oriented X3 - Psychological Psychiatric: POSITIVE: Affect Appropriate, Mood Appropriate Abdomen Progress - Results Reviewed by me Lab Results:: Laboratory Results 03/27/17 03/27/17 Range/Units 13:20 13:26 WBC 5.70 (4.8-10.8) 10^3/uL RBC 3.53 L (4.20-5.40) 10^6/uL Hgb 11.6 L (12.0-16.0) g/dL Hct 34.1 L (37.0-47.0) % MCV 96.6 (81-99) FL MCH 32.9 H (27-31) PG MCHC 34.0 (33-37) g/dL RDW Std Deviation 47.3 (39-50) fL RDW Coeff of Delilah 13.9 (11.5-14.5) % Plt Count 281 (140-350) 10*3/uL MPV 8.5 (7.4-12.2) FL Immature Gran % (Auto) 0.2 (0-5) % Neut % (Auto) 64.4 (50-80) % Lymph % (Auto) 20.2 (10-50) % Spink % (Auto) 13.5 (5-15) % Eos % (Auto) 1.2 (0-8) % Baso % (Auto) 0.5 (0-1) % Immature Gran # (Auto) 0.01 10*3/UL Neut # (Auto) 3.67 10*3/UL Lymph # (Auto) 1.15 10*3/uL Spink # (Auto) 0.77 (0.3-0.8) 10*3/UL Eos # (Auto) 0.07 10*3/UL Baso # (Auto) 0.03 10*3/UL WBC Morphology Comment Normal morphology (NORM) Plt Morphology Comment Normal morphology (NORM) RBC Morph Comment Normal morphology (NORM) Sodium 132 L (135-145) meq/L Potassium 4.1 (3.8-5.2) meq/L Chloride 97 L (98-112) meq/L Carbon Dioxide 26 (23-33) meq/L Anion Gap 9 (5-20) BUN 6 L (7-22) mg/dL Creatinine 0.6 (0.50-1.20) mg/dL Estimated GFR > 60 (>60 ml/min/1.73m(2)) BUN/Creatinine Ratio 10.00 (6-20) Glucose 84 (78-110) mg/dL Calculated Osmolality 270.0 (267-292) mOsm/kg Calcium 8.7 (8.7-10.7) mg/dL - Patient's Progress MDM / ED Course: Patient was brought into the emergency department she had no bowel movement for greater than 6 days was still on some pain medication status post a back surgery. We did a CBC and BMP which showed no substantial electrolyte abnormalities no signs of infection patient's vitals are benign. She was given a bottle of magnesium citrate and then also a couple of soapsuds enemas and did have substantial stooling results. She is feeling less bloated and feeling a bit better. She also did have me evaluate some lower tremor the swelling which seems to be equal bilaterally only in the feet very little if any swelling into the legs negative home home and signs bilaterally I feel there is low risk for any sort of blood clot here right now but have encouraged her rate to return if she does have any increasing symptoms and that way or other concerns. I've also asked her to increase the amount of [id number] stool softener she is using at home some make sure she is drinking plenty of water and moving around some as well. I've encouraged her to follow-up with her primary care provider in the next 1-2 days. She is feeling better now after having had a couple bowel movements. Patient Care Time - Estimated PCT Patient Care Time (In Minutes): 40 Vital Signs - Recent Vital Signs Vital Signs: Vital Signs (Last 8 hours) Temp Pulse Resp BP Pulse Ox 03/27/17 12:38 98.0 F 120 H 20 99/69 97 - VS Reviewed Vital Signs Reviewed: Yes (with my exam her heart rate was right around 95-100) Discharge Clinical Impression: Constipation Qualifiers: Constipation type: unspecified constipation type Qualifier Code: (K59.00) Constipation, unspecified Discharge Disposition: Discharged to Home Condition: Stable Patient Instructions Given at Discharge: Constipation (ED) Additional Instructions: Take stool softeners [id number] frequently to stay regular Follow-up with your primary care provider in the next 1-2 days to discuss this ER visit and watch her symptoms closely Follow-up with your spine surgeon for her routine postoperative follow-up and for any new or different neurologic complaints she might have. Follow Up With: JOELLE JOAQUIN [Primary Care Provider] -
[2017-03-27] MEDS ORDERED: SUPREP BOWEL PREP KIT PO ONE (15:29)
[2017-03-27 15:34] LABS: BASOPHILS # (AUTO) 0.03 10*3/UL; BASOPHILS % (AUTO) 0.5 % (0-1); EOSINOPHILS # (AUTO) 0.07 10*3/UL; EOSINOPHILS % (AUTO) 1.2 % (0-8); HEMATOCRIT 34.1 % (37.0-47.0); HEMOGLOBIN 11.6 g/dL (12.0-16.0); LYMPHOCYTES # (AUTO) 1.15 10*3/uL; MEAN CORPUSCULAR HEMOGLOBIN 32.9 PG (27-31); MEAN CORPUSCULAR VOLUME 96.6 FL (81-99); MEAN PLATELET VOLUME 8.5 FL (7.4-12.2); MONOCYTES # (AUTO) 0.77 10*3/UL (0.3-0.8); MONOCYTES % (AUTO) 13.5 % (5-15); NEUTROPHILS # (AUTO) 3.67 10*3/UL; NEUTROPHILS % (AUTO) 64.4 % (50-80); RED BLOOD COUNT 3.53 10^6/uL (4.20-5.40)
[2017-03-27 15:35] LABS: PLATELET MORPHOLOGY COMMENT NORMAL MORPHOLOGY (NORM); RBC MORPHOLOGY COMMENT NORMAL MORPHOLOGY (NORM); WBC MORPHOLOGY COMMENT NORMAL MORPHOLOGY (NORM)
== END 2017-03-27 16:31 | disposition home or self-care (01) ==
LOC: ER 12:38
DX: K59.00 Constipation, unspecified (principal); R14.0 Abdominal distension (gaseous); Z98.1 Arthrodesis status
CPT/HCPCS: 80048; 85025; 96360; 96361; 99282; 99283; J7030

== ENCOUNTER → 2017-05-09 | Outpatient (CLI) | payer OTHER ==
[2017-05-09 17:41] LABS: BLOOD UREA NITROGEN 6 mg/dL (7-22); CALCIUM 10.7 mg/dL (8.7-10.7); EST GLOMERULAR FILTRATION > 60 (>60 ml/min/1.73m(2))
== END ==
LOC: LAB 08:20
PROVIDERS: ATTEND Internal Medicine
DX: M54.17 Radiculopathy, lumbosacral region (principal); M81.0 Age-related osteoporosis without current pathological fracture; Z85.118 Personal history of other malignant neoplasm of bronchus and lung
CPT/HCPCS: 80048